=== PATIENT | female | born 1945 | race Caucasian/White ===

== ENCOUNTER 2024-04-27 09:55 | Emergency (ER) | payer MEDICARE, OTHER, SELFPAY ==
[2024-04-27 10:00] VITALS: BMI 23.5
[2024-04-27 10:04] VITALS: BP 143/60
[2024-04-27 10:05] VITALS: BP 143/60
[2024-04-27 10:36] LABS: % Basophils 0.2 % (0-2); % Eosinophils 0.4 % (0-6); % Immature Granulocytes 0.6 % (0-0.5); % Lymphocytes 13.6 % (20.5-51.1); % Monocytes 6.7 % (1.7-9.3); % Neutrophils 78.5 % (42.2-75.2); Absolute Immature Granulocytes 0.1 10^3/uL (0-0.05); Absolute Lymphocytes 1.2 10^3/uL (1.2-3.4); Absolute Monocytes 0.6 10^3/uL (0.1-0.6); Absolute Neutrophils 7.1 10^3/uL (1.4-6.5); Hematocrit 37.3 % (37.0-47.0); Hemoglobin 12.7 g/dL (12.0-16.0); Mean Corpuscular Hgb 30.3 pg (27.0-31.0); Mean Platelet Volume 9.3 fL (7.4-10.4); Nucleated Red Blood Cells % 0 %; Platelet Count 240 10^3/uL (130-400); Red Blood Cell Count 4.19 10^6/uL (4.20-5.40); Red Cell Dist. Width 12.9 % (11.5-14.5); White Blood Cell Count 9.1 10^3/uL (4.8-10.8)
--- NOTE | 2024-04-27 10:47 | ED.GENMED ---
History of Present Illness
General
Chief Complaint: Breathing Problem
Time Seen by Provider: 04/27/24 10:07
History of Present Illness
History of Present Illness:
79-year-old female with history of chronic tobacco abuse and COPD presents to the emergency department for evaluation of shortness of breath, worse with exertion this morning. She states symptoms started abruptly associated with chest tightness,
she did use an albuterol nebulizer and feels improved upon arrival to the emergency department. Denies any recent fevers or night sweats, denies current chest pain. Still with mild shortness of breath. Denies any leg swelling or calf cramping.
Past History
Past History
ED Past Medical History: Asthma
ED Past Surgical History: Cholecystectomy
Social History
Tobacco: Smoker
Alcohol: Occasional
Personal: Single
Living: with family
Family History
Family History: CAD
Review of Systems
Review of Systems
Allergies reviewed?: Yes
All Other Systems: ROS reviewed and negative except as documented in HPI and ROS
Phy Exam
Physical Exam
Physical Exam:
GEN: Well appearing, NAD, WDWN
Eyes: PERRLA, EOMs intact, no scleral icterus
HENT: NCAT, oral mucosa moist
Lungs: Normal respiratory effort, no tachypnea accessory muscle use. Occasional inspiratory rhonchi heard throughout, no expiratory wheezes or rales
Cardiac: RRR, no M/R/G, no peripheral edema. Radial pulses 2+ bilat
Neuro: AO x 3
MSK: No gross deformity or ecchymosis. No edema. No digital clubbing
Skin: No rashes, petechiae. Normal color, no pallor or jaundice.
Psych: Calm, cooperative, proper hygiene
Scores
Heart Failure Risk
Heart Failure Risk Score: Not Applicable
Course
Orders/Labs/Results
Orders:
Orders
04/27/24 09:58
Electrocardiogram (*1) Urgent
Reason for Study: Shortness of Breath
04/27/24 09:59
EKG- Treatment ONCE
04/27/24 10:23
Basic Metabolic Panel Urgent
Complete Blood Count/With Diff Urgent
Pro-BNP [NT-proBNP] Urgent
Troponin I Urgent
04/27/24 10:26
Add On- LAB Urgent
Tests Added?: troponin
04/27/24 10:44
CR Chest - 2 Views Urgent
Comment:
Reason For Exam: SOB
Abnormal Lab Results
04/27/24
10:23
RBC 4.19 L 10^6/uL
(4.20-5.40)
Abs Immat Gran (auto) 0.1 H 10^3/uL
(0-0.05)
Absolute Neuts (auto) 7.1 H 10^3/uL
(1.4-6.5)
Immature Gran % 0.6 H %
(0-0.5)
Neutrophils % 78.5 H %
(42.2-75.2)
Lymphocytes % 13.6 L %
(20.5-51.1)
BUN 18 H mg/dl
(7-17)
Glucose 129 H mg/dl
(70-99)
04/27/24 10:23
04/27/24 10:23
Vital Signs
Initial and Last Documented VS:
Initial Vital Signs
Pulse Resp
87 21
04/27/24 10:03 04/27/24 10:03
Last Documented Vital Signs
Temp Pulse Resp BP Pulse Ox
98.3 F 71 16 123/58 93
04/27/24 10:05 04/27/24 13:00 04/27/24 13:00 04/27/24 13:00 04/27/24 13:00
MDM/Problems Addressed
MDM/Problems Addressed:
Patient remained free of symptoms while in the emergency department. Her EKG is nonischemic and her troponin is unremarkable, she was ambulated by myself in the emergency department without any reproduction of symptoms. There is no wheezing. This
could have been an acute bronchospasm that resolved after albuterol use. Chest x-ray shows no acute infiltrate. Do not feel there is any need for steroids in this instance given that she is not actively using. Discussed supportive care and return
parameters
Comment
Comment:
Initial EKG independently interpreted by me send ECG patient however no gross ST changes concerning for ischemia, sinus rhythm at a rate of 86 with frequent PVCs noted
*Critical Care Note
Total Time (30-74mins, 75-104mins- exclusive of procedures): Not Applicable
ED Attending Note
-
Portions of this chart may have been created with voice recognition software.� Occasional wrong word or��sound alike� substitutions may have occurred due to the inherent limitations of voice recognition software.
Discharge Plan
Departure
Patient Disposition: Home (Routine Discharge)
Date of Disposition: 04/27/24
Time of Disposition: 13:12
Patient with high blood pressure during this ER visit?: No
Discharge Problem:
Exertional dyspnea
Instructions: Shortness of Breath (Dyspnea) (DC)
Prescriptions:
New
albuterol sulfate 2.5 mg /3 mL (0.083 %) solution for nebulization
2.5 mg inhalation QID PRN (Reason: shortness of breath or wheezing) Qty: 180 0RF
No Action
zinc 50 MG tablet
50 mg PO DAILY
cholecalciferol (vitamin D3) 1,000 UNITS tablet
1,000 units PO DAILY
Spiriva Respimat 1.25mcg
2 puff inhalation R DAILY
Referrals:
Ángela Gibbons MD [Active] -
Freedom Clark DO [Family Provider] -
Interventions
Interventions:
*Risk Screen - Suicide Last Done: 04/27/24 10:07
*General Assessment Last Done: 04/27/24 10:05
*Neglect/Abuse Screening Last Done: 04/27/24 10:07
ED- Fall Risk Assessment Last Done: 04/27/24 10:05
*ED COVID-19 Vaccine History Last Done: 04/27/24 10:07
*Nursing Disposition Last Done: 04/27/24 13:21
ED- Cardiac Assessment Last Done: 04/27/24 10:07
ED- Pulmonary Assessment Last Done: 04/27/24 10:07
Discharge Date and Time
Discharge Date/Time: 04/27/24 13:21
Print Language: TURKMEN
[2024-04-27 10:52] LABS: Blood Urea Nitrogen 18 mg/dl (7-17); Calcium 9.1 mg/dl (8.4-10.2); Carbon Dioxide 27 mmol/L (22-30); Chloride 104 mmol/L (98-107); Estimated Creatinine Clearance 57 ml/min; Glucose 129 mg/dl (70-99); Sodium 137 mmol/L (135-145); eGFR > 60.00
[2024-04-27 10:58] LABS: NT-proBNP 53.6 pg/ml
[2024-04-27 11:00] VITALS: BP 114/52
[2024-04-27 11:21] LABS: Troponin I 0.017 ng/ml
[2024-04-27 12:00] VITALS: BP 115/44
[2024-04-27 13:00] VITALS: BP 123/58
== END 2024-04-27 13:21 | disposition home or self-care (01) ==
LOC: EMR 09:55
PROVIDERS: EMERGENCY PHYSICIAN Emergency Medicine; FAMILY PHYSICIAN Internal Medicine
DX: R06.00 Dyspnea, unspecified (principal); J44.89 Other specified chronic obstructive pulmonary disease; F17.200 Nicotine dependence, unspecified, uncomplicated; Z82.49 Family history of ischemic heart disease and other diseases of the circulatory system; Z90.49 Acquired absence of other specified parts of digestive tract
CPT/HCPCS: 99283; 71046; 80048; 83880; 84484; 85025; 93005

== ENCOUNTER → 2024-07-11 11:19 | Outpatient (REF) | payer MEDICARE, OTHER, SELFPAY | LOC: HWRAD 11:19 | PROVIDERS: ATTENDING PHYSICIAN Internal Medicine Critical Care Medicine; FAMILY PHYSICIAN Internal Medicine | DX: R91.1 Solitary pulmonary nodule (principal) | CPT/HCPCS: 71250 ==

== ENCOUNTER 2025-01-07 18:03 | Emergency (ER) | payer MEDICARE, OTHER, SELFPAY ==
[2025-01-07 18:17] VITALS: BP 165/80
[2025-01-07 18:40] LABS: % Basophils 0.6 % (0-2); % Eosinophils 3.7 % (0-6); % Immature Granulocytes 0.2 % (0-0.5); % Lymphocytes 24.9 % (20.5-51.1); % Monocytes 8.9 % (1.7-9.3); % Neutrophils 61.7 % (42.2-75.2); Absolute Eosinophils 0.2 10^3/uL (0-0.7); Absolute Lymphocytes 1.5 10^3/uL (1.2-3.4); Absolute Monocytes 0.6 10^3/uL (0.1-0.6); Absolute Neutrophils 3.8 10^3/uL (1.4-6.5); Hematocrit 37.9 % (37.0-47.0); Hemoglobin 12.7 g/dL (12.0-16.0); Mean Corp Hgb Conc. 33.5 g/dL (33.0-37.0); Mean Corpuscular Hgb 29.6 pg (27.0-31.0); Mean Corpuscular Volume 88.3 fL (81.0-99.0); Mean Platelet Volume 9.4 fL (7.4-10.4); Nucleated Red Blood Cells % 0 %; Platelet Count 251 10^3/uL (130-400); Red Blood Cell Count 4.29 10^6/uL (4.20-5.40); Red Cell Dist. Width 13.2 % (11.5-14.5); White Blood Cell Count 6.2 10^3/uL (4.8-10.8)
[2025-01-07 18:56] LABS: ALT (SGPT) 19 U/L (0-35); AST (SGOT) 24 U/L (14-36); Albumin 4.7 g/dl (3.5-5.0); Alkaline Phosphatase 84 U/L (38-126); Blood Urea Nitrogen 15 mg/dl (7-17); Calcium 9.6 mg/dl (8.4-10.2); Carbon Dioxide 28 mmol/L (22-30); Chloride 101 mmol/L (98-107); Glucose 97 mg/dl (70-99); Potassium 4.3 mmol/L (3.5-5.1); Sodium 138 mmol/L (135-145); Total Bilirubin 0.5 mg/dl (0.2-1.3); Total Protein 7.5 g/dl (6.3-8.2); eGFR > 60.00
[2025-01-07 19:04] LABS: NT-proBNP 54.2 pg/ml; Troponin I < 0.012 ng/ml
[2025-01-07 20:20] VITALS: BP 158/70
[2025-01-07 20:24] VITALS: BMI 26.6
[2025-01-07 21:00] VITALS: BP 165/70
[2025-01-07] MEDS: DUONEB 3 ML INH (21:02)
--- NOTE | 2025-01-07 21:14 | ED.GENMED ---
History of Present Illness
<Brooke Ricardo PA-C - Last Filed: 01/08/25 16:06>
General
Chief Complaint: Cardiac Symptoms
Source: patient and family (Patient sons at bedside)
Exam Limitations: none
Time Seen by Provider: 01/07/25 20:19
Nursing documentation reviewed up to this point in time: agreed with
History of Present Illness
History of Present Illness:
Patient is a 79-year-old female with history of asthma, COPD, hypertension presenting to the emergency department for evaluation of intermittent chest tightness and shortness of breath for the past few weeks. Patient sent from primary care office
after they noticed an abnormality on her EKG. She reports a tightness in her mid chest associated with mild shortness of breath typically occurring in the morning and resolve after use of her albuterol inhaler. Patient denies any exertional or
pleuritic component to symptoms.
She denies any associated fever, cough, back pain. No lower extremity edema or swelling.
Of note�patient states she started taking amlodipine 5 mg about 1.5 weeks ago and thinks this may be related to symptoms.
Past History
<Brooke Ricardo PA-C - Last Filed: 01/08/25 16:06>
Past History
ED Past Medical History: Asthma
ED Past Surgical History: Cholecystectomy
Social History
Tobacco: Smoker
Alcohol: Occasional
Personal: Single
Living: with family
Family History
Family History: CAD
Review of Systems
<Brooke Ricardo PA-C - Last Filed: 01/08/25 16:06>
Review of Systems
Allergies reviewed?: Yes
All Other Systems: ROS reviewed and negative except as documented in HPI and ROS
Phy Exam
<Brooke Ricardo PA-C - Last Filed: 01/08/25 16:06>
Physical Exam
Physical Exam:
Vitals: Hypertensive, otherwise vital signs stable. Afebrile
General: Patient is well appearing, no acute distress. Nontoxic appearing
Skin: Warm and dry, no rashes or lesions
Head: Normocephalic, atraumatic
Eyes: Sclera nonicteric. EOMs intact. No nystagmus.
Throat: Protecting airway
Neck: Normal ROM, no cervical spine tenderness, no meningismus
Cardiac: Regular rate and rhythm, no murmurs.
Pulm: Normal respiratory effort. Very mild scattered expiratory wheeze bilaterally.
Abdomen: Abdomen soft and nontender.
Extremities: No evidence of cyanosis or edema. Palpable DP pulses bilaterally
Neuro: AAOx3. Grossly intact.
Psychiatric: Normal affect.
Course
<Brooke Ricardo PA-C - Last Filed: 01/08/25 16:06>
Orders/Labs/Results
Orders:
Orders
01/07/25 18:04
ECG [Electrocardiogram (*1)] Urgent
Reason for Study: Chest Pain
EKG- Treatment ONCE
01/07/25 18:25
CR Chest - 2 Views Urgent
Comment:
Reason For Exam: respiratory distress
01/07/25 18:31
Complete Blood Count/With Diff Urgent
Comprehensive Metabolic Panel Urgent
NT-proBNP Urgent
Troponin I Urgent
01/07/25 20:43
Ipratropium/Albuterol Sulfate [Duoneb] 3 ml INH R NOW STA
01/07/25 21:02
COVID-19 Antigen Urgent
Source: Nasal Swab
D-Dimer Urgent
Influenza A+B Rapid Molecular Urgent
KATHY Source: Nasal Swab
Specimen Description:
01/07/25 23:30
Prednisone [Deltasone] 50 mg PO NOW STA
01/07/25 18:31
01/07/25 18:31
Vital Signs
Initial and Last Documented VS:
Initial Vital Signs
Temp Pulse Resp BP Pulse Ox
98.9 F 77 18 165/80 93
01/07/25 18:17 01/07/25 18:17 01/07/25 18:17 01/07/25 18:17 01/07/25 18:17
Last Documented Vital Signs
Temp Pulse Resp BP Pulse Ox
98.9 F 81 32 158/68 94
01/07/25 18:17 01/07/25 23:41 01/07/25 23:41 01/07/25 23:41 01/07/25 23:41
<Colton Brumfield MD - Last Filed: 01/07/25 23:37>
Orders/Labs/Results
Orders:
Orders
01/07/25 18:04
ECG [Electrocardiogram (*1)] Urgent
Reason for Study: Chest Pain
EKG- Treatment ONCE
01/07/25 18:25
CR Chest - 2 Views Urgent
Comment:
Reason For Exam: respiratory distress
01/07/25 18:31
Complete Blood Count/With Diff Urgent
Comprehensive Metabolic Panel Urgent
NT-proBNP Urgent
Troponin I Urgent
01/07/25 20:43
Ipratropium/Albuterol Sulfate [Duoneb] 3 ml INH R NOW STA
01/07/25 21:02
COVID-19 Antigen Urgent
Source: Nasal Swab
D-Dimer Urgent
Influenza A+B Rapid Molecular Urgent
KATHY Source: Nasal Swab
Specimen Description:
01/07/25 23:30
Prednisone [Deltasone] 50 mg PO NOW STA
01/07/25 18:31
01/07/25 18:31
Vital Signs
Initial and Last Documented VS:
Initial Vital Signs
Temp Pulse Resp BP Pulse Ox
98.9 F 77 18 165/80 93
01/07/25 18:17 01/07/25 18:17 01/07/25 18:17 01/07/25 18:17 01/07/25 18:17
Last Documented Vital Signs
Temp Pulse Resp BP Pulse Ox
98.9 F 81 32 158/68 94
01/07/25 18:17 01/07/25 23:41 01/07/25 23:41 01/07/25 23:41 01/07/25 23:41
<Brooke Ricardo PA-C - Last Filed: 01/08/25 16:06>
MDM/Problems Addressed
Differential Diagnosis Includes:
Not limited to: COPD exacerbation, viral bronchitis, pneumonia, pulmonary embolism, acute coronary syndrome, etc
MDM/Problems Addressed:
79 year old female presenting with 1.5 weeks of intermittent chest tightness and dyspnea mostly resolved with albuterol inhaler. No exertional or pleuritic component to symptoms. No associated fever, productive cough, or LE pain/swelling. Vitals and
exam as above. Labs sent off in triage without clinically significant abnormalities. Troponin undetectable. Given patient has been without chest discomfort since this morning - feel this is sufficient to r/u acute TN. Pro-BNP within normal range.
EKG shows normal sinus rhythm without acute ischemic changes. Did compare to EKG obtained at PCPs office without any changes noted. CXR shows no acute abnormalities. Overall impression is likely mild COPD exacerbation vs viral bronchitis. Low
suspicion for PE although will send screen with D-dimer. Do not suspect ACS given undetectable troponin and nonischemic EKG. Do not suspect related to new amlodipine prescription. Will give duoneb and send viral swabs.
Update: d-dimer wnl. viral testing negative. Patient reports feeling much better after duoneb. Lungs clear without wheeze. Patient appears very well and comfortable. She is not hypoxic or tachypneic. Admit not indicated. Will discharge home w/ short
course of prednisone for mild COPD exacerbation. Patient has refills of albuterol inhaler at home which she will continue to use as needed. Patient will f/u with PCP. Strict return precautions discussed.
Chronic conditions affecting care:
COPD, asthma
Acute Exacerbation and/or Progression of Chronic Illness:
Acute COPD exacerbation
<Brooke Ricardo PA-C - Last Filed: 01/08/25 16:06>
*Radiology
Radiology exam reviewed: radiology read reviewed
*Pulse Oximetry
Patient hypoxic: no
*EKG
Interpreted by ED Provider?: Yes
EKG Intrepretation Date: 01/07/25
Interpretation: normal
Comparison EKG: no changes
Heart Rate: 76
Rate: normal
Rhythm: sinus
[place]: normal axis
Interval: normal interval
QRS Pattern: normal QRS
Ischemia: no ischemia
*Baggagemaster Interpretation
Rate: normal
Interpretation: normal
Heart Rate: 80
Rhythm: sinus
*Critical Care Note
Total Time (30-74mins, 75-104mins- exclusive of procedures): Not Applicable
Data Reviewed
Review of Other/Old Records Reveals: Testing (EKG obtained in PCP 01/07/25- NSR without acute ischemic changes)
ED Attending Note
<Brooke Ricardo PA-C - Last Filed: 01/08/25 16:06>
-
Portions of this chart may have been created with voice recognition software.� Occasional wrong word or��sound alike� substitutions may have occurred due to the inherent limitations of voice recognition software.
<Colton Brumfield MD - Last Filed: 01/07/25 23:37>
ED Attending Note
Patient seen and examined by attending physician: Yes
ED Attending Note:
I have seen and evaluated the patient with a [id number] encounter. I have spoken to the advance practicer provider and involved in the medical history, the physical exam, medical decision making.
Evaluation and management service: agree unless noted differently below.
Results interpretation: agree unless noted differently below.
Focused HPI: 79-year-old female with history of COPD presents to the ER for evaluation of chest tightness. Patient reports symptoms have been intermittent for the past week to 10 days. She reports that typically in the mornings she will wake up
and have tightness in her chest and some shortness of breath. She says that typically her symptoms resolved with albuterol nebulizer. She says that she thought it could be related to newly initiated amlodipine, scheduled an appoint with her
primary doctor. Had an EKG in the office and there was a question of lateral infarct age-indeterminate and she was referred to the ER. She denies any chest pain at present. She denies any other complaints.
Physical exam: Awake alert no distress. Hypertensive otherwise normal vitals. No cardiac rubs gallops or murmurs. Faint scattered wheezing. No edema in the legs.
Medical Decision Makin-year-old female presents for evaluation of intermittent chest tightness typically in the mornings that resolves with albuterol. She had EKG which was questionably abnormal at primary visit today and was sent to the ER to
be evaluated. Her clinical history is most consistent with COPD exacerbation/bronchitis. Will check serial troponins, chest x-ray, labs. I did review EKG from PCP office computer read as questionable lateral infarct but appears unchanged when
compared to old EKGs. If troponins negative and other workup otherwise reassuring can likely be discharged on prednisone with continued albuterol for suspected COPD/bronchitis.
Discharge Plan
Departure
Patient Disposition: Home (Routine Discharge)
Date of Disposition: 01/07/25
Time of Disposition: 23:37
Patient with high blood pressure during this ER visit?: Yes
Covid-19: Negative COVID-19
Discharge Problem:
COPD exacerbation
Instructions: Chest pain - Discharge instructions, Chronic obstructive pulmonary disease (COPD) - Discharge instructions
Prescriptions:
New
prednisone 50 mg tablet
50 mg PO DAILY Qty: 5 0RF
No Action
zinc 50 MG tablet
50 mg PO DAILY
cholecalciferol (vitamin D3) 1,000 UNITS tablet
1,000 units PO DAILY
Spiriva Respimat 1.25mcg
2 puff inhalation R DAILY
albuterol sulfate 2.5 mg /3 mL (0.083 %) solution for nebulization
2.5 mg inhalation QID PRN (Reason: shortness of breath or wheezing) Qty: 180 0RF
Referrals:
NONE,* [Active] -
Activity Restrictions/Additional Instructions:
Return to the emergency department any worsening chest pain or shortness of breath, fevers or productive cough, significant weakness, worsening current symptoms, or any other concerns
-As discussed your lab work, EKG, and chest x-ray in the emergency department showed no abnormalities.
-I suspect your symptoms are likely secondary to a mild COPD exacerbation or bronchitis. You should continue to use your albuterol inhaler as needed at home for chest tightness/wheezing. A prescription for prednisone has been sent to the pharmacy.
You should take this daily for the next 4 days. You were given your first dose today and should resume medication tomorrow.
-It is important stay well-hydrated. Continue to take all other medications as prescribed
-Follow-up with your primary care provider for further evaluation/management to ensure that symptoms are improving
Monitor your symptoms closely and return to the emergency department with any acute worsening/new symptoms or any other concerns
Interventions
Interventions:
*Risk Screen - Suicide Last Done: 01/07/25 18:24
*General Assessment Last Done: 01/07/25 20:24
*Neglect/Abuse Screening Last Done: 01/07/25 18:24
*ED- Fall Risk Assessment Last Done: 01/07/25 18:24
*ED COVID-19 Vaccine History Last Done: 01/07/25 20:24
*Nursing Disposition Last Done: 01/07/25 23:44
ED- Pulmonary Assessment Last Done: 01/07/25 20:24
ED- Cardiac Assessment Last Done: 01/07/25 20:24
Discharge Date and Time
Discharge Date/Time: 01/07/25 23:54
Print Language: NAMIBIAN
[2025-01-07 21:27] LABS: D-Dimer 0.43 ug/mlFEU (0.00-0.50)
[2025-01-07 21:30] LABS: COVID-19 Antigen Negative (Negative)
[2025-01-07 23:41] VITALS: BP 158/68
== END 2025-01-07 23:54 | disposition home or self-care (01) ==
LOC: EMR 18:03
PROVIDERS: Physician Assistant; EMERGENCY PHYSICIAN Emergency Medicine; FAMILY PHYSICIAN Internal Medicine
DX: J44.1 Chronic obstructive pulmonary disease with (acute) exacerbation (principal); I10 Essential (primary) hypertension; F17.200 Nicotine dependence, unspecified, uncomplicated; Z90.49 Acquired absence of other specified parts of digestive tract; Z11.52 Encounter for screening for COVID-19
CPT/HCPCS: 99285; 94640; 71046; 80053; 83880; 84484; 85025; 85379; 87502; 87811; 93005

== ENCOUNTER 2025-02-09 10:51 | Emergency (ER) | payer MEDICARE, OTHER, SELFPAY ==
[2025-02-09 10:53] VITALS: BP 159/87
[2025-02-09 11:56] VITALS: BMI 24.5
[2025-02-09 12:00] VITALS: BP 153/68
[2025-02-09] MEDS: PROTONIX IV 40 MG IV (12:11)
[2025-02-09 12:17] LABS: % Basophils 0.4 % (0-2); % Immature Granulocytes 0.3 % (0-0.5); % Monocytes 9.2 % (1.7-9.3); % Neutrophils 68.1 % (42.2-75.2); Absolute Eosinophils 0.2 10^3/uL (0-0.7); Absolute Lymphocytes 1.4 10^3/uL (1.2-3.4); Absolute Monocytes 0.7 10^3/uL (0.1-0.6); Absolute Neutrophils 4.9 10^3/uL (1.4-6.5); Hematocrit 37.3 % (37.0-47.0); Hemoglobin 12.4 g/dL (12.0-16.0); Mean Corp Hgb Conc. 33.2 g/dL (33.0-37.0); Mean Corpuscular Hgb 29.2 pg (27.0-31.0); Mean Corpuscular Volume 87.8 fL (81.0-99.0); Nucleated Red Blood Cells % 0 %; Platelet Count 233 10^3/uL (130-400); Red Blood Cell Count 4.25 10^6/uL (4.20-5.40); White Blood Cell Count 7.3 10^3/uL (4.8-10.8)
--- NOTE | 2025-02-09 12:18 | ED.GENMED ---
History of Present Illness
General
Chief Complaint: Abdominal Symptoms
Time Seen by Provider: 02/09/25 12:04
History of Present Illness
History of Present Illness:
80-year-old female with history of COPD and hypertension presents to the emergency department for evaluation of upper abdominal pain associated with dark stool and shortness of breath for the past 2 to 3 days. Her son indicates that it is likely
been longer than the past few days, more so in the past 'few weeks'. Patient states her pain is severe when she first wakes up in the morning however she notes that she is able to eat and drink without difficulty. She has been using Pepto-Bismol
with modest relief over the past few days and this seems to correlate with the dark stool. She has been using her albuterol without any relief of the shortness of breath. No associated fever, chills, or sweats. Prior history of total abdominal
hysterectomy and cholecystectomy
Past History
Past History
ED Past Medical History: Asthma
ED Past Surgical History: Cholecystectomy
Social History
Tobacco: Smoker
Alcohol: Occasional
Personal: Single
Living: with family
Family History
Family History: CAD
Review of Systems
Review of Systems
Allergies reviewed?: Yes
All Other Systems: ROS reviewed and negative except as documented in HPI and ROS
Phy Exam
Physical Exam
Physical Exam:
GEN: Well appearing, NAD, WDWN
HEENT: Oral mucosa moist, no scleral icterus
Cardiac: Regular rate and rhythm, no murmurs
Lung: No respiratory distress, no tachypnea, lungs clear to auscultation bilaterally however diminished in the bases
Abdomen: Soft, marked epigastric tenderness, no rigidity
MSK: No gross deformity or injuries
Skin: Good color, no pallor or jaundice, no rashes
Neuro: AO x3, moves all extremities freely
Psych: Calm, cooperative
Course
Orders/Labs/Results
Orders:
Orders
02/09/25 11:41
Electrocardiogram (*1) Stat
Reason for Study: Other
Other Reason for Exam: GI Bleed
EKG- Treatment ONCE
IV Insert/Care/Rem.- Treatment PRN
Pantoprazole [Protonix IV] 40 mg IV NOW STA
02/09/25 12:06
Type+Screen Urgent
Complete Blood Count/With Diff Urgent
Comprehensive Metabolic Panel Urgent
Lipase Urgent
Comment: ADD ON
PTT Urgent
Prothrombin Time Urgent
02/09/25 13:07
Add On- LAB Urgent
Tests Added?: lipase
02/09/25 13:45
CT Abd/Pel (IV only)-DH only Urgent
Comment:
Reason For Exam: epigastric pain
Ketorolac [Toradol] 15 mg IV NOW STA
02/09/25 15:41
Ipratropium/Albuterol Sulfate [Duoneb] 3 ml INH R NOW ONE
02/09/25 17:02
Dexamethasone Sod Phosphate [Decadron] 6 mg IV NOW STA
Abnormal Lab Results
02/09/25
12:06
Absolute Monos (auto) 0.7 H 10^3/uL
(0.1-0.6)
Lymphocytes % 19.0 L %
(20.5-51.1)
02/09/25 12:06
02/09/25 12:06
Vital Signs
Initial and Last Documented VS:
Initial Vital Signs
Temp Pulse Resp BP Pulse Ox
98.4 F 76 24 159/87 94
02/09/25 10:53 02/09/25 10:53 02/09/25 10:53 02/09/25 10:53 02/09/25 10:53
Last Documented Vital Signs
Temp Pulse Resp BP Pulse Ox
98.4 F 76 24 124/77 92
02/09/25 10:53 02/09/25 10:53 02/09/25 10:53 02/09/25 17:00 02/09/25 16:45
MDM/Problems Addressed
MDM/Problems Addressed:
Patient was initially evaluated for upper abdominal pain, had unremarkable labs and negative CT. Shortly after being given NSAID she reported that her pain had resolved however she felt predominantly short of breath. Reassessment revealed she was
wheezing, given a DuoNeb with improvement. Unclear causative nature of the pain, doubt this is an upper GI bleed given that she has no risk factors for this and is able to eat without difficulty. Dark stool most likely related to Pepto-Bismol
usage. Will start her on prednisone for suspected COPD exacerbation
*Critical Care Note
Total Time (30-74mins, 75-104mins- exclusive of procedures): Not Applicable
ED Attending Note
-
Portions of this chart may have been created with voice recognition software.� Occasional wrong word or��sound alike� substitutions may have occurred due to the inherent limitations of voice recognition software.
Discharge Plan
Departure
Patient Disposition: Home (Routine Discharge)
Date of Disposition: 02/09/25
Time of Disposition: 17:02
Patient with high blood pressure during this ER visit?: No
Discharge Problem:
COPD exacerbation
Instructions: COPD exacerbation in adults - ED discharge instructions
Prescriptions:
New
prednisone 20 mg tablet
40 mg PO DAILY 6 Days Qty: 12 0RF
No Action
albuterol sulfate 2.5 mg /3 mL (0.083 %) solution for nebulization
2.5 mg inhalation R Q6HPRN PRN (Reason: sob)
amlodipine 5 mg tablet
5 mg PO HS
bismuth subsalicylate [Pepto-Bismol] 262 mg/15 mL Suspension
524 mg PO DAILYPRN PRN (Reason: upset stomach)
naproxen sodium [Aleve] 220 mg Tablet
220 mg PO DAILYPRN PRN (Reason: mild pain)
albuterol sulfate 90 mcg/actuation HFA aerosol inhaler
2 inh INHALATION R Q6HPRN PRN (Reason: sob)
Referrals:
Flynn Sylvester MD [Family Provider] -
Interventions
Interventions:
*Risk Screen - Suicide Last Done: 02/09/25 17:21
*General Assessment Last Done: 02/09/25 11:56
*Neglect/Abuse Screening Last Done: 02/09/25 12:15
*ED- Fall Risk Assessment Last Done: 02/09/25 11:56
*ED COVID-19 Vaccine History Last Done: 02/09/25 11:56
*Nursing Disposition Last Done: 02/09/25 17:21
KE-Ukwmfb-[id number] Assessment Last Done: 02/09/25 12:07
Discharge Date and Time
Discharge Date/Time: 02/09/25 17:21
Print Language: HEBREW
[2025-02-09 12:39] LABS: APTT 28.6 Sec (23.4-35.0); INR 0.98; PT 13.3 Sec (11.4-14.6)
[2025-02-09 12:41] LABS: ALT (SGPT) 21 U/L (0-35); AST (SGOT) 25 U/L (14-36); Alkaline Phosphatase 78 U/L (38-126); Blood Urea Nitrogen 16 mg/dl (7-17); Calcium 9.4 mg/dl (8.4-10.2); Carbon Dioxide 26 mmol/L (22-30); Chloride 107 mmol/L (98-107); Estimated Creatinine Clearance 43 ml/min; Glucose 97 mg/dl (70-99); Potassium 4.8 mmol/L (3.5-5.1); Sodium 140 mmol/L (135-145); Total Bilirubin 0.8 mg/dl (0.2-1.3); Total Protein 6.6 g/dl (6.3-8.2); eGFR 57.66
[2025-02-09 13:00] VITALS: BP 127/63
[2025-02-09 13:21] LABS: Lipase 109 U/L (23-300)
[2025-02-09 14:00] VITALS: BP 161/92
[2025-02-09] MEDS: TORADOL 15 MG IV (14:03)
[2025-02-09 16:00] VITALS: BP 169/72
[2025-02-09] MEDS: DUONEB 3 ML INH (16:23)
[2025-02-09 17:00] VITALS: BP 124/77
[2025-02-09] MEDS: DECADRON 6 MG IV (17:05)
== END 2025-02-09 17:21 | disposition home or self-care (01) ==
LOC: EMR 10:51
PROVIDERS: EMERGENCY PHYSICIAN Emergency Medicine; FAMILY PHYSICIAN Internal Medicine Gastroenterology
DX: R10.13 Epigastric pain (principal); J44.1 Chronic obstructive pulmonary disease with (acute) exacerbation; I10 Essential (primary) hypertension; F17.200 Nicotine dependence, unspecified, uncomplicated; Z90.49 Acquired absence of other specified parts of digestive tract; Z91.048 Other nonmedicinal substance allergy status
CPT/HCPCS: 99284; 96375 ×2; 94640; 96374; 74177; 80053; 83690; 85025; 85610; 85730; 86850; 86900; 86901; 93005; Q9967

== ENCOUNTER 2025-04-07 11:38 | Emergency (ER) | payer MEDICARE, OTHER, SELFPAY ==
[2025-04-07 11:39] VITALS: BP 139/65
[2025-04-07 12:30] LABS: % Basophils 0.3 % (0-2); % Eosinophils 0.7 % (0-6); % Immature Granulocytes 0.4 % (0-0.5); % Lymphocytes 6.5 % (20.5-51.1); % Monocytes 7.7 % (1.7-9.3); % Neutrophils 84.4 % (42.2-75.2); Absolute Eosinophils 0.1 10^3/uL (0-0.7); Absolute Lymphocytes 0.6 10^3/uL (1.2-3.4); Absolute Monocytes 0.8 10^3/uL (0.1-0.6); Absolute Neutrophils 8.3 10^3/uL (1.4-6.5); Hemoglobin 12.4 g/dL (12.0-16.0); Mean Corp Hgb Conc. 33.5 g/dL (33.0-37.0); Mean Corpuscular Hgb 29.5 pg (27.0-31.0); Mean Corpuscular Volume 87.9 fL (81.0-99.0); Mean Platelet Volume 9.3 fL (7.4-10.4); Nucleated Red Blood Cells % 0 %; Platelet Count 238 10^3/uL (130-400); Red Blood Cell Count 4.21 10^6/uL (4.20-5.40); Red Cell Dist. Width 13.1 % (11.5-14.5); White Blood Cell Count 9.8 10^3/uL (4.8-10.8)
[2025-04-07 12:44] LABS: ALT (SGPT) 17 U/L (0-35); AST (SGOT) 19 U/L (14-36); Alkaline Phosphatase 65 U/L (38-126); Blood Urea Nitrogen 15 mg/dl (7-17); Calcium 9.3 mg/dl (8.4-10.2); Carbon Dioxide 26 mmol/L (22-30); Chloride 107 mmol/L (98-107); Glucose 145 mg/dl (70-99); Potassium 4.2 mmol/L (3.5-5.1); Sodium 140 mmol/L (135-145); Total Bilirubin 0.6 mg/dl (0.2-1.3); Total Protein 6.7 g/dl (6.3-8.2); eGFR > 60.00
[2025-04-07 12:46] LABS: COVID-19 Antigen Negative (Negative)
--- NOTE | 2025-04-07 12:49 | ED.GENMED ---
History of Present Illness
General
Chief Complaint: Breathing Problem
Time Seen by Provider: 04/07/25 12:48
History of Present Illness
History of Present Illness:
REVIEW OF OLD RECORDS
- The patient has history of asthma/COPD/smoker and high blood pressure. The patient was seen in the emergency department 02/09/2025 diagnosed with a COPD exacerbation and was placed on prednisone for suspected COPD exacerbation at that time.
Time of initial evaluation 12:50 PM
CHIEF COMPLAINT(S)
Difficulty breathing.
HISTORY OF PRESENT ILLNESS
The patient is a 80-year-old female with a history of chronic obstructive pulmonary disease (COPD), who presented to the emergency department with complaints of difficulty breathing. The patient reported waking up in the morning and experiencing an
immediate onset of breathlessness, unlike previous episodes. She stated, �I woke up and I couldn�t breathe.� It was noted that the patient felt fine while sitting still but experienced shortness of breath when moving around. She denied any current
chest pain or pressure, although earlier she felt slight chest discomfort likely due to anxiety but described herself as not feeling anxious at present. The patient has a history of smoking but has since quit.
She previously attempted nebulizer treatments at home with her albuterol inhaler, which provided minimal relief. In the emergency department, her oxygen saturation levels are stable while at rest (97%), but they decrease to approximately 87% during
exertion. The patient is not seeing her solid waste technician until April. She had a computed tomography (CT) scan of her lungs during a previous visit in January, which is planned to be repeated.
ADDITIONAL HISTORY OBTAINED FROM SOURCES OTHER THAN THE PATIENT
Nursing assessment confirmed that her oxygen saturation levels dropped to 86% with activity.
CHRONIC MEDICAL CONDITIONS SIGNIFICANTLY AFFECTING CARE
Chronic obstructive pulmonary disease (COPD).
SOCIAL HISTORY
Former smoker.
REVIEW OF SYSTEMS
- Respiratory: Shortness of breath, primarily with exertion. No current wheezing.
- Cardiovascular: Denied current chest pain or pressure, minimal discomfort earlier.
- Neurological/Psychiatric: Denied current anxiety. Previously felt anxious, likely due to respiratory distress.
PHYSICAL EXAM
- Respiratory: Breath sounds diminished bilaterally without wheeze, she does appear dyspneic with exertion as I watched her walk in the room
- Nursing notes reviewed and vital signs reviewed.
- General: Well appearing in no distress
- HEENT: Moist oral mucosa
- Cardiovascular: No murmurs, normal heart rate, regular rhythm, No chest wall tenderness
- Abdomen: Soft with no peritoneal signs, no tenderness
- Neurologic: Excellent strength all extremities, no coordination deficits
- Psychiatric: Appropriate mental status, normal insight and judgement
- Extremities: Nontender, no edema, moves all extremities equally
- Skin: No rash, no lesions
PROBLEM LIST
- Acute: Difficulty breathing, oxygen desaturation with exertion.
- Chronic: Chronic obstructive pulmonary disease (COPD).
PLAN
- Administer an additional nebulizer breathing treatment.
- Provide intravenous steroids.
- Order a repeat CT scan of the chest to rule out any changes since last visit, including possible blood clots.
- Order troponin level to assess for cardiac involvement.
- Monitor oxygen saturation levels before and after exertion.
- Discuss follow-up with solid waste technician, currently scheduled for April.
DIFFERENTIAL DIAGNOSIS
The Differential Diagnosis includes, in no particular order and is not limited to:
1. Chronic obstructive pulmonary disease exacerbation
2. Pneumonia
3. Pulmonary embolism
4. Heart failure
5. Asthma
6. Anxiety-induced hyperventilation
7. Interstitial lung disease
8. Cardiac ischemia
9. Pleural effusion
10. Anemia
RADIOLOGY
- Chest x-ray personally reviewed and again shows oblique band seen on lateral view similar to prior but no definite acute consolidation
EKG
- Sinus 91, leftward axis deviation, nonspecific ST abnormality, no significant change from 02/09/2025
LABS
- CBC unremarkable, chemistries unremarkable however the glucose is 145, COVID-negative, troponin and BNP are both normal
UPDATE
- I watched the patient walk in the emergency department and immediately after exertion for about a minute, her sat, with good waveform on room air was only 86%. This quickly went back up to about 96% without any additional intervention other than
having her rest on the stretcher. Will plan CTA.
04/07/25 - 15:55
CAT scan shows no signs of a blood clot. Oxygen levels occasionally dropped to mid-80s with exertion but quickly rebounded to the 90s. Patient prefers to manage with outpatient treatment. Administered IV steroids, followed by a prescribed course of
prednisone 50 mg for four days. Patient agreed to continue follow-up with their solid waste technician. Discharged home with monitoring plan. The patient was briefly placed on oxygen by nursing staff without my knowledge but I took her off of oxygen and
sats remained about 93% on room air. Patient still continues to want to go home. I did offer and consider admitting her to the hospital.
Past History
Past History
ED Past Medical History: Asthma
ED Past Surgical History: Cholecystectomy
Social History
Tobacco: Smoker
Alcohol: Occasional
Personal: Single
Living: with family
Family History
Family History: CAD
Phy Exam
Physical Exam
Physical Exam:
See HPI
Scores
Heart Failure Risk
Heart Failure Risk Score: Not Applicable
Sepsis
Sepsis Screening
Sepsis Assessment: Sepsis Ruled Out
Sepsis Screen
Sepsis Screen: Sepsis Ruled Out
Date: 04/07/25
Time: 15:59
Course
Orders/Labs/Results
Orders:
Orders
04/07/25 11:44
Electrocardiogram (*1) Urgent
Reason for Study: Shortness of Breath
CXR2 [CR Chest - 2 Views ] Urgent
Comment:
Reason For Exam: sob
04/07/25 11:45
EKG- Treatment ONCE
04/07/25 12:14
COVID-19 Antigen Urgent
Source: Nasal Swab
Complete Blood Count/With Diff Urgent
Comprehensive Metabolic Panel Urgent
Influenza A+B Rapid Molecular Urgent
KATHY Source: Nasal Swab
Specimen Description:
04/07/25 12:59
CT Chest PE Study Urgent
Comment:
Reason For Exam: exertional hypoxia
Ipratropium/Albuterol Sulfate [Duoneb] 3 ml INH R NOW STA
MethylPREDNISolone PF [Solu-Medrol Pf] 125 mg IV NOW STA
04/07/25 13:05
NT-proBNP Urgent
Troponin I Urgent
Abnormal Lab Results
04/07/25
12:14
Absolute Neuts (auto) 8.3 H 10^3/uL
(1.4-6.5)
Absolute Lymphs (auto) 0.6 L 10^3/uL
(1.2-3.4)
Absolute Monos (auto) 0.8 H 10^3/uL
(0.1-0.6)
Neutrophils % 84.4 H %
(42.2-75.2)
Lymphocytes % 6.5 L %
(20.5-51.1)
Glucose 145 H mg/dl
(70-99)
04/07/25 12:14
04/07/25 12:14
Vital Signs
Initial and Last Documented VS:
Initial Vital Signs
Temp Pulse Resp BP Pulse Ox
37.3 C 102 26 139/65 95
04/07/25 11:39 04/07/25 11:39 04/07/25 11:39 04/07/25 11:39 04/07/25 11:39
Last Documented Vital Signs
Temp Pulse Resp BP Pulse Ox
37.3 C 83 18 144/61 91
04/07/25 11:39 04/07/25 15:45 04/07/25 15:01 04/07/25 15:12 04/07/25 15:15
*Pulse Oximetry
Patient hypoxic: no (95% room air-normal)
*Critical Care Note
Total Time (30-74mins, 75-104mins- exclusive of procedures): Not Applicable
ED Attending Note
-
Portions of this chart may have been created with voice recognition software.� Occasional wrong word or��sound alike� substitutions may have occurred due to the inherent limitations of voice recognition software.
Discharge Plan
Departure
Patient Disposition: Home (Routine Discharge)
Date of Disposition: 04/07/25
Time of Disposition: 15:56
Patient with high blood pressure during this ER visit?: Yes
Discharge Problem:
COPD exacerbation
Instructions: Exacerbation of COPD (DC), BLOOD PRESSURE
Prescriptions:
New
prednisone 50 mg tablet
50 mg PO DAILY Qty: 4 0RF
No Action
albuterol sulfate 2.5 mg /3 mL (0.083 %) solution for nebulization
2.5 mg inhalation R Q6HPRN PRN (Reason: sob)
amlodipine 5 mg tablet
5 mg PO HS
bismuth subsalicylate [Pepto-Bismol] 262 mg/15 mL Suspension
524 mg PO DAILYPRN PRN (Reason: upset stomach)
naproxen sodium [Aleve] 220 mg Tablet
220 mg PO DAILYPRN PRN (Reason: mild pain)
albuterol sulfate 90 mcg/actuation HFA aerosol inhaler
2 inh INHALATION R Q6HPRN PRN (Reason: sob)
prednisone 20 mg tablet
40 mg PO DAILY 6 Days Qty: 12 0RF
Referrals:
Freedom Clark DO [Family Provider, Internal Medicine]
Activity Restrictions/Additional Instructions:
I suspect that your symptoms are related to a COPD exacerbation. I sent a prescription for prednisone to your pharmacy. Next dose tomorrow. Return here if worse or other concerns. The CAT scan of the chest shows no sign of blood clot and no sign
of pneumonia. Cardiac blood work shows no sign of heart attack or heart failure. Follow-up with your solid waste technician. Continue to use your nebulizer.
Interventions
Interventions:
*Risk Screen - Suicide Last Done: 04/07/25 11:39
*General Assessment Last Done: 04/07/25 11:39
*Neglect/Abuse Screening Last Done: 04/07/25 11:39
*ED COVID-19 Vaccine History Last Done: 04/07/25 13:00
ED- Cardiac Assessment Last Done: 04/07/25 13:00
ED- Pulmonary Assessment Last Done: 04/07/25 13:00
Discharge Date and Time
Print Language: LITHUANIAN
[2025-04-07] MEDS: SOLU-MEDROL PF 125 MG IV (13:10)
[2025-04-07] MEDS: DUONEB 3 ML INH (13:10)
[2025-04-07 13:38] LABS: NT-proBNP 59.8 pg/ml; Troponin I < 0.012 ng/ml
[2025-04-07 14:08] VITALS: BP 144/67
[2025-04-07 15:12] VITALS: BP 144/61
[2025-04-07 16:00] VITALS: BP 150/79
== END 2025-04-07 16:16 | disposition home or self-care (01) ==
LOC: EMR 11:38
PROVIDERS: Emergency Medicine; EMERGENCY PHYSICIAN Emergency Medicine; FAMILY PHYSICIAN Internal Medicine
DX: J44.1 Chronic obstructive pulmonary disease with (acute) exacerbation (principal); Z87.891 Personal history of nicotine dependence; Z11.52 Encounter for screening for COVID-19
CPT/HCPCS: 94640; 96374; 99285; 71046; 71275; 80053; 83880; 84484; 85025; 87502; 87811; 93005; Q9967

== ENCOUNTER 2025-05-21 14:00 | Observation (INO) | payer MEDICARE, OTHER, SELFPAY ==
[2025-05-21] VITALS (9 sets, daily range): BP systolic 113–162; BP diastolic 43–75; BMI 27.4; BMI 27.5
--- NOTE | 2025-05-21 11:08 | ED.GENMED ---
History of Present Illness
General
Chief Complaint: Breathing Problem
Time Seen by Provider: 05/21/25 11:01
History of Present Illness
History of Present Illness:
80-year-old female with history of COPD presents to the emergency department for evaluation of shortness of breath and wheezing that began upon awakening today. This is her third such event in the past 3 months. She is currently compliant with her
3 times weekly azithromycin and inhaled corticosteroids, used a nebulizer treatment this morning. No fevers or chills. Denies chest pain or leg swelling.
Past History
Past History
ED Past Medical History: Asthma
ED Past Surgical History: Cholecystectomy
Social History
Tobacco: Smoker
Alcohol: Occasional
Personal: Single
Living: with family
Family History
Family History: CAD
Review of Systems
Review of Systems
Allergies reviewed?: Yes
All Other Systems: ROS reviewed and negative except as documented in HPI and ROS
Phy Exam
Physical Exam
Physical Exam:
GEN: Well appearing, NAD, WDWN
HEENT: Oral mucosa moist, no scleral icterus
Cardiac: Regular rate and rhythm
Lung: Tachypneic and mildly hypertrophic, diffuse expiratory wheezes heard throughout all lung luna, no rales
MSK: No gross deformity or injuries, no lower extremity edema
Skin: Good color, no pallor or jaundice, no rashes
Neuro: AO x3, moves all extremities freely
Psych: Calm, cooperative
Scores
Heart Failure Risk
Heart Failure Risk Score: Not Applicable
Course
Orders/Labs/Results
Orders:
Orders
05/21/25 10:48
Electrocardiogram (*1) Urgent
Reason for Study: Shortness of Breath
EKG- Treatment ONCE
CR Chest - 2 Views Urgent
Comment:
Reason For Exam: SOB
05/21/25 11:07
Ipratropium/Albuterol Sulfate [Duoneb] 6 ml INH R NOW STA
MethylPREDNISolone PF [Solu-Medrol Pf] 60 mg IV NOW STA
05/21/25 11:08
Complete Blood Count/With Diff Urgent
Comprehensive Metabolic Panel Urgent
05/21/25 11:13
Ipratropium/Albuterol Sulfate [Duoneb] 3 ml .ROUTE .STK-MED ONE
MethylPREDNISolone PF [Solu-Medrol Pf] 125 mg .ROUTE .STK-MED ONE
05/21/25 11:18
Ipratropium/Albuterol Sulfate [Duoneb] 3 ml .ROUTE .STK-MED ONE
05/21/25 12:53
Ipratropium/Albuterol Sulfate [Duoneb] 3 ml INH R NOW STA
05/21/25 13:27
Admit/Transfer Patient As Directed
Co-Sign Provider:
Level of Care: Observation services
Assign to:: Medical/Surgical
Physician / Group: diane
Diagnosis: copd exacerbation
PRN Pain Medication Management As Directed
May give lesser potent ordered pain med per pt: Yes
preference::
Protocol:: Medication orders for pain may be administered in a
manner that supports deferring to patient preference
when the pt is:
- Requesting an ordered lesser potent pain medication.
Least to most potent pain medications are defined
as: acetaminophen < NSAID < tramadol < opioids
(morphine, oxycodone, hydromorphone).
- Requesting a lesser dose of the same medication IF
ORDERED.
- Requesting a less intrusive route of administration
if both routes are prescribed by the provider (PO <
IV).
05/21/25 13:28
Code Status As Directed
Resuscitation Status: Full Code
Abnormal Lab Results
05/21/25
11:08
MCHC 32.5 L g/dL
(33.0-37.0)
Absolute Neuts (auto) 7.1 H 10^3/uL
(1.4-6.5)
Absolute Lymphs (auto) 1.1 L 10^3/uL
(1.2-3.4)
Neutrophils % 78.9 H %
(42.2-75.2)
Lymphocytes % 11.8 L %
(20.5-51.1)
Chloride 109 H mmol/L
(98-107)
BUN 21 H mg/dl
(7-17)
Glucose 148 H mg/dl
(70-99)
05/21/25 11:08
05/21/25 11:08
Vital Signs
Initial and Last Documented VS:
Initial Vital Signs
Temp Pulse Resp BP Pulse Ox
98.8 F 102 20 127/68 92
05/21/25 10:46 05/21/25 10:46 05/21/25 10:46 05/21/25 10:46 05/21/25 10:46
Last Documented Vital Signs
Temp Pulse Resp BP Pulse Ox
98.8 F 105 28 121/60 95
05/21/25 10:46 05/21/25 15:15 05/21/25 15:15 05/21/25 15:00 05/21/25 15:00
MDM/Problems Addressed
MDM/Problems Addressed:
No clear source of infectious etiology, patient remains tachypneic particular with any minimal exertion thus will admit for further management
*Pulse Oximetry
SaO2: 94
Oxygen Mode of Delivery: Room air
Patient hypoxic: no
*Critical Care Note
Total Time (30-74mins, 75-104mins- exclusive of procedures): Not Applicable
ED Attending Note
-
Portions of this chart may have been created with voice recognition software.� Occasional wrong word or��sound alike� substitutions may have occurred due to the inherent limitations of voice recognition software.
Discharge Plan
Departure
Patient Disposition: Admit
Date of Disposition: 05/21/25
Time of Disposition: 12:54
Admit to: Med/Surg
Presentation/result/management discussed w/ accepting MD/DO: Hospitalist
Discharge Problem:
COPD exacerbation
Interventions
Interventions:
*Risk Screen - Suicide Last Done: 05/21/25 10:46
*General Assessment Last Done: 05/21/25 10:46
*Neglect/Abuse Screening Last Done: 05/21/25 11:02
*ED- Fall Risk Assessment Last Done: 05/21/25 11:02
*ED COVID-19 Vaccine History Last Done: 05/21/25 11:02
ED- Cardiac Assessment Last Done: 05/21/25 11:02
ED- Pulmonary Assessment Last Done: 05/21/25 11:02
[2025-05-21] MEDS: SOLU-MEDROL PF 60 MG IV (11:15)
[2025-05-21] MEDS: DUONEB 6 ML INH (11:16)
[2025-05-21 11:20] LABS: Hematocrit 37.8 % (37.0-47.0); Hemoglobin 12.3 g/dL (12.0-16.0); Mean Corp Hgb Conc. 32.5 g/dL (33.0-37.0); Mean Corpuscular Volume 85.7 fL (81.0-99.0); Nucleated Red Blood Cells % 0 %; Platelet Count 228 10^3/uL (130-400); Red Cell Dist. Width 13.0 % (11.5-14.5)
[2025-05-21 11:34] LABS: ALT (SGPT) 17 U/L (0-35); AST (SGOT) 22 U/L (14-36); Albumin 4.2 g/dl (3.5-5.0); Alkaline Phosphatase 57 U/L (38-126); Blood Urea Nitrogen 21 mg/dl (7-17); Calcium 9.2 mg/dl (8.4-10.2); Carbon Dioxide 25 mmol/L (22-30); Chloride 109 mmol/L (98-107); Estimated Creatinine Clearance 48 ml/min; Glucose 148 mg/dl (70-99); Potassium 4.3 mmol/L (3.5-5.1); Sodium 138 mmol/L (135-145); Total Protein 6.6 g/dl (6.3-8.2); eGFR > 60.00
[2025-05-21] MEDS: DUONEB 3 ML INH ×3 (12:57→19:40)
--- NOTE | 2025-05-21 13:32 | HPS.HSE ---
Addendum entered and electronically signed by Timur Amaral MD 05/21/25 13:36:
Needs LABA/LAMA combination therapy.
Original Note:
Family Physician
-
Family Physician: INTERVIEWE UNKNOWN - PT NOT
Chief Complaint
-
shortness of breath
History of Present Illness
80-year-old female past medical history of COPD, hypertension presenting with shortness of breath with cough and wheezing which e started today. This is her third visit in the past 3 months. She is compliant with 3 times weekly azithromycin and
inhaled corticosteroids and used nebulizer treatment this morning. Denies fevers or chills. Denies chest pain or leg swelling.
She was treated for COPD around a month ago with prednisone. Helped her breathing. She again started having shortness of breath afterwards and was started on inhaled budesonide by her dump grader without any improvement.
She is a former smoker. Denies alcohol.
Medical History
Past Medical History
Past Medical History: Reports Other (COPD, hypertension)
Past Surgical History: Reports None
Social History
Tobacco: Former Smoker
Alcohol: None
Drug: None
Family History
Family History: Not pertinent
Allergies / Home Medications
Allergies reflects when Allergies were last updated in [facility].
Home Medications with original date entered in [facility]
Allergy/Medication List:
Allergies
Allergy/AdvReac Type Severity Reaction Status Date / Time
adhesive tape Allergy Rash Verified 05/21/25 10:47
Home Medications
albuterol sulfate 2.5 mg/3 mL (0.083 %) solution for nebulization 2.5 mg inhalation R Q6HPRN PRN sob 02/09/25
albuterol sulfate 90 mcg/actuation aerosol inhaler 2 inh inhalation R Q6HPRN PRN sob 02/09/25
amlodipine 5 mg tablet 5 mg PO HS 02/09/25
bismuth subsalicylate 262 mg/15 mL oral suspension (Pepto-Bismol) 524 mg PO DAILYPRN PRN upset stomach 02/09/25
naproxen sodium 220 mg tablet (Aleve) 220 mg PO DAILYPRN PRN mild pain 02/09/25
prednisone 20 mg tablet 40 mg (2 x 20 mg) PO DAILY 6 days #12 tabs 02/09/25
prednisone 50 mg tablet 50 mg PO DAILY #4 tabs 04/07/25
Review of Systems
-
History Source: Patient
A 12 point ROS was completed and negative except as noted: Yes
Constitutional: Reports No Symptoms
EENT: Reports No Symptoms
Respiratory: Reports See HPI
Cardiac: Reports No Symptoms
Abdomen/GI: Reports No Symptoms
: Reports No Symptoms
Musculoskeletal: Reports No Symptoms
Skin: Reports No Symptoms
Neurological: Reports No Symptoms
Endocrine: Reports No Symptoms
Hematologic/Lymphatic: Reports No Symptoms
Psych: Reports No Symptoms
Physical Exam
Vital Signs
Vital Signs
Temp Pulse Resp BP Pulse Ox
98.8 F 93 23 116/59 93
05/21/25 10:46 05/21/25 11:15 05/21/25 11:15 05/21/25 11:00 05/21/25 11:15
Physical Exam
General: Well Developed, Well Nourished and No Apparent Distress
HEENT: NormoCephalic, Moist mucous membranes and Atraumatic
Respiratory: Wheezes
Cardiac: S1/S2 and Regular Rhythm; No Murmur or Rub
GI: Soft, Non Tender, Non Distended and Normal Bowel Sounds; No Organomegaly
Rectal: Deferred by Provider
Musculoskeletal: No Clubbing, No Cyanosis and No Edema
Skin: No Rash
Neuro: Nonfocal/grossly intact
Laboratory Results
-
05/21/25 11:08
05/21/25 11:08
Laboratory Results
Total Bilirubin 0.7 mg/dl (0.2-1.3) 05/21/25 11:08
AST 22 U/L (14-36) 05/21/25 11:08
ALT 17 U/L (0-35) 05/21/25 11:08
Alkaline Phosphatase 57 U/L (38-126) 05/21/25 11:08
Data Reviewed
-
Lab Data: Labs Reviewed by me
Old Records: Reviewed
Impression/Plan
-
IMPRESSION:
PLAN:
# Acute COPD exacerbation
-Wheezing on examination
-Saturating 92 to 94% room air
-Chest x-ray unremarkable
- DuoNebs every 6 hours
- Dexamethasone 4 mg every 12
- Continue azithromycin 3 times a week
- Needs outpatient follow-up with pulmonary for frequent COPD flares
Essential hypertension
- Continue amlodipine
Former smoker
Full code
DVT prophylaxis heparin
Regular diet
[2025-05-21] MEDS: DUONEB INH (16:53)
--- NOTE | 2025-05-21 18:03 | PTCARENOTE ---
Pt arrived to unit from ED via stretcher. Able to ambulate from stretcher to bed in room. 2L O2 continued. Pt AAOx3, no complaints at this time. Able to answer all questions appropriately. No complaints of pain. Pt oriented to room and staff. Plan
of care ongoing.
[2025-05-21] MEDS: HEPARIN 5000 UNITS SC (21:08)
[2025-05-21] MEDS: NORVASC 5 MG PO (21:08)
[2025-05-22 05:51] LABS: Hematocrit 34.9 % (37.0-47.0); Hemoglobin 11.4 g/dL (12.0-16.0); Mean Corp Hgb Conc. 32.7 g/dL (33.0-37.0); Mean Corpuscular Volume 86.6 fL (81.0-99.0); Nucleated Red Blood Cells % 0 %; Platelet Count 208 10^3/uL (130-400); Red Cell Dist. Width 12.9 % (11.5-14.5)
[2025-05-22] MEDS: DUONEB 3 ML INH ×5 (06:10→23:09)
[2025-05-22 06:34] LABS: ALT (SGPT) 16 U/L (0-35); AST (SGOT) 19 U/L (14-36); Albumin 3.8 g/dl (3.5-5.0); Alkaline Phosphatase 48 U/L (38-126); Blood Urea Nitrogen 24 mg/dl (7-17); Calcium 9.4 mg/dl (8.4-10.2); Carbon Dioxide 26 mmol/L (22-30); Chloride 108 mmol/L (98-107); Estimated Creatinine Clearance 54 ml/min; Glucose 95 mg/dl (70-99); Potassium 4.5 mmol/L (3.5-5.1); Sodium 140 mmol/L (135-145); Total Protein 6.3 g/dl (6.3-8.2); eGFR > 60.00
[2025-05-22] MEDS: HEPARIN 5000 UNITS SC ×2 (07:33→20:13)
[2025-05-22 07:41] VITALS: BP 130/57
--- NOTE | 2025-05-22 09:58 | CM ---
CM met with Marina Jacobs to complete IA. She lives with one of her sons, Kailash, in [address] home; another son lives in [place].
Pt reports being independent in adls and ambulation. + drives. Denies use of DME. Has not utilized [facility] in past.
Pharmacy: [facility]
PCP: Freedom Sylvester
Plan: Home No needs
--- NOTE | 2025-05-22 11:52 | W.PN.HOSP.TC ---
Today's Communication/Plan
-
Monitor vital signs see plan
Wean oxygen as tolerated
Continue with DuoNeb standing and as needed
Continue with Decadron
Continue azithromycin
start Pulmicort
Pulmonary evaluation
Assessment / Plan
Assessment / Plan
General: Well Developed, Well Nourished and No Apparent Distress
HEENT: NormoCephalic, Moist mucous membranes and Atraumatic
Respiratory: Wheezes
Cardiac: S1/S2 and Regular Rhythm; No Murmur or Rub
GI: Soft, Non Tender, Non Distended and Normal Bowel Sounds
Musculoskeletal: No Edema
Neuro: Nonfocal/grossly intact
Acute COPD exacerbation
-Wheezing on examination
Currently on 2 L, wean oxygen as tolerated
-Chest x-ray unremarkable
- Continue with DuoNeb standing and as needed
- Continue with Decadron, 4 every 12
- Continue azithromycin 3 times a week
- Sees Dr. Garza from pulmonary outpatient, consult pulmonary. Used to be on Spiriva however not on that anymore. Does report recently put on budesonide which she does not like
Essential hypertension
- Continue amlodipine
Former smoker
Full code
DVT prophylaxis heparin
Anticipated Discharge: 24 - 48 hours
Subjective/Interval History
-
Date of Service: May 22, 2025
Denies pain, does have shortness of breath
Objective Data
-
Labs:
Laboratory Results
05/22/25
05:17
WBC 7.6
Hgb 11.4 L
Hct 34.9 L
Plt Count 208
Sodium 140
Potassium 4.5
Chloride 108 H
Carbon Dioxide 26
BUN 24 H
Creatinine 0.9
Glucose 95
Calcium 9.4
Total Bilirubin 0.6
AST 19
ALT 16
Alkaline Phosphatase 48
Vital Signs:
Vital Signs
Temp Pulse Resp BP Pulse Ox
97.9 F 88 22 130/57 94
05/22/25 07:41 05/22/25 11:11 05/22/25 11:11 05/22/25 07:41 05/22/25 11:11
I&O
05/21/25 05/22/25 05/23/25
06:59 06:59 06:59
Intake Total 840 / 840
Balance 840 / 840
[2025-05-22] MEDS: PULMICORT INH (12:12)
--- NOTE | 2025-05-22 12:50 | CON.PUL ---
Consultation
Consultation Request
Date/Time Consultation Requested: 05/22/2025
Date/Time Consultation Performed: 05/22/2025
Requesting Provider: Dr. Moreira
Performing Provider: Dr. Olaf Langford
Reason for Consultation: Acute COPD exacerbation
Medical History
-
Chief Complaint: Exertional dyspnea
History of Present Illness:
80-year-old woman with past medical history significant for COPD, hypertension who presented to the emergency room on 05/21/2025 complaining of shortness of breath, cough, wheezing for 1 day.
Patient has been in the emergency room 3 times in the past 3 months. Patient follow-up with pulmonary, currently on low-dose azithromycin for anti-inflammatory properties, inhaled corticosteroids and DuoNebs.
She denies any fevers, chills.
Denies purulent sputum production or hemoptysis.
Denies fevers.
3 months ago she received prednisone and she felt better.
Currently non-smoking. Quit in June 2024
-
[facility] records reviewed, last time seen was 04/16/2025. At that time she was started on Pulmicort nebulizers on top of DuoNebs.
It is noted that possibly anticholinergics in the past contributed to an ileus
More recently started on low-dose azithromycin for anti-inflammatory properties.
Patient declined pulmonary rehabilitation.
Sputum culture in the outpatient setting showed no significant growth
Past Medical History
Past Medical History: Other (See assessment and plan)
Social History
Tobacco: Former Smoker
Alcohol: None
Drug: None
Family History
Family History: Reviewed & Not Pertinent
Allergies / Home Medications
Allergies
Allergy/AdvReac Type Severity Reaction Status Date / Time
adhesive tape Allergy Rash Verified 05/21/25 10:47
Home Medications
�Medication �Instructions �Recorded �Confirmed �Last Taken �Type
albuterol sulfate 90 mcg/actuation 2 inh inhalation R Q6HPRN PRN sob 02/09/25 05/21/25 02/09/25 History
aerosol inhaler
amlodipine 5 mg tablet 5 mg PO DAILY Blood Pressure 02/09/25 05/21/25 05/21/25 History
azithromycin 250 mg tablet 250 mg PO MOWEFR Infection 05/21/25 05/21/25 05/21/25 History
budesonide 0.5 mg/2 mL suspension 0.5 mg inhalation R Q6HPRN PRN sob 05/21/25 05/21/25 05/21/25 History
for nebulization
ipratropium 0.5 mg-albuterol 3 mg 3 ml inhalation R Q4HPRN PRN sob 05/21/25 05/21/25 05/21/25 History
(2.5 mg base)/3 mL nebulization
soln
Review of Systems
-
History Source: Patient
All other systems: Negative unless noted
Vitals / Labs / Diagnostic Testing
Vital Signs
Temp Pulse Resp BP Pulse Ox
97.9 F 88 22 130/57 94
05/22/25 07:41 05/22/25 11:11 05/22/25 11:11 05/22/25 07:41 05/22/25 11:11
Lab Data
05/22/25 05:17
05/22/25 05:17
Diagnostic Testing:
Physical Exam
-
HEENT: Normocephalic
Cardiovascular: S1/S2
Respiratory: Wheeze (minimal) and Non-Labored Respirations
GI: Soft and Non Distended
Neurology: Awake and Alert
Skin: Warm
General: Comfortable (At rest)
Assessment
-
80-year-old woman with history of moderate COPD, hypertension, former smoker who is here for evaluation of shortness of breath and acute exacerbation of COPD. Over the last several months multiple emergency room visits. Usually responsive to
prednisone but symptoms recurred shortly after tapering.
Acute exacerbation of COPD-recurrent.
Chest x-ray 04/21/2025: Clear lungs
CT chest 04/07/2025: Reviewed, negative for pulmonary embolism. Bronchial wall thickening. No evidence for pleural pericardial effusion. 6 mm nodule left lower lobe unchanged. Chronic atelectasis/scarring in the lingula.
Negative troponin/negative proBNP
Conditions present prior admission:
Hypertension
COPD-last time seen pulmonary office 04/16/2025.
Intolerant to anticholinergics-it is noted that she developed an ileus.
Spirometry: Moderate airflow obstruction. FEV1 1.15 L - 52%, FEV1/FVC ratio 39%, FVC 2.96 L 99%.
History of malignant melanoma
Former smoker stopped smoking [id number]-year history.
Due for low-dose radiation CT chest 03/2026
Assessment and plan:
Recurrent acute exacerbation of COPD/shortness of breath.
Patient denies any allergy symptoms-There is no peripheral eosinophilia reported to suggest allergies.
Denies swallowing problems or acid reflux symptoms
Denies any environmental or occupational exposures
Still off cigarettes since 2023
Interestingly, she reports increased anxiety as her twin brother in December of this year and she is trying to sell her house. This could be contributing to her recurrent symptoms.
She was prescribed anxiolytics but she has not taken them.
She also is taking a new antihypertensive amlodipine which in general is not associated with recurrent pulmonary symptoms.
-
About a month ago was started on nebulized steroids on top of DuoNebs.
Continue for now.
Also recently started on low-dose azithromycin for anti-inflammatory properties and prevention of acute exacerbation.
Responsive to steroids. Will need a regimen that includes inhaled or nebulized corticosteroids.
Discussed she describes some sensitivity to Pulmicort.
-
Imaging of the chest without infiltrate
A sputum culture in the outpatient setting without growth
Patient remains off cigarettes since 2023.
It is interesting the patient response to steroids and symptoms recurred shortly after tapering.
-
For now agree with current management As above.
Slow taper of prednisone over 2 to 3 weeks with close follow-up in the outpatient setting.
If unable to tolerate nebulized Pulmicort will need ICS/LABA combination. She was intolerant to Wixela. May need to try Symbicort.
Advised patient to take her anxiolytics.
-
Cardiac etiology less likely but will update echocardiogram to rule out pulmonary hypertension.
With negative proBNP and troponin my suspicion is not very high.
Doubt thromboembolic disease as well as the symptoms improved with the steroids and CT angiogram in March 2025 showed no evidence for pulmonary embolism.
-
Will continue to follow along with you.
[2025-05-22] MEDS: DUONEB INH (15:02)
[2025-05-22 16:35] VITALS: BP 140/63
[2025-05-22] MEDS: PULMICORT 0.5 MG INH (19:10)
[2025-05-22] MEDS: TYLENOL 650 MG PO (20:13)
[2025-05-22] MEDS: DECADRON 4 MG IV (21:21)
[2025-05-22] MEDS: NORVASC 5 MG PO (21:25)
[2025-05-22 23:00] VITALS: BP 136/68
[2025-05-23 05:45] LABS: Hematocrit 35.1 % (37.0-47.0); Hemoglobin 11.4 g/dL (12.0-16.0); Mean Corp Hgb Conc. 32.5 g/dL (33.0-37.0); Mean Corpuscular Volume 87.3 fL (81.0-99.0); Nucleated Red Blood Cells % 0 %; Platelet Count 215 10^3/uL (130-400); Red Cell Dist. Width 12.8 % (11.5-14.5)
[2025-05-23 06:15] LABS: Blood Urea Nitrogen 25 mg/dl (7-17); Calcium 8.9 mg/dl (8.4-10.2); Carbon Dioxide 24 mmol/L (22-30); Chloride 108 mmol/L (98-107); Estimated Creatinine Clearance 54 ml/min; Glucose 149 mg/dl (70-99); Potassium 5.0 mmol/L (3.5-5.1); Sodium 139 mmol/L (135-145); eGFR > 60.00
[2025-05-23] MEDS: PULMICORT 0.5 MG INH ×2 (07:23→19:18)
[2025-05-23] MEDS: DUONEB 3 ML INH ×4 (07:24→19:18)
[2025-05-23 07:40] VITALS: BP 131/68
[2025-05-23] MEDS: HEPARIN 5000 UNITS SC ×2 (08:26→21:00)
[2025-05-23] MEDS: ZITHROMAX 250 MG PO (08:27)
[2025-05-23] MEDS: DECADRON 4 MG IV ×2 (10:46→21:02)
[2025-05-23] MEDS: FLUSH (NSS) 2 FLUSH IV (10:47)
--- NOTE | 2025-05-23 11:49 | W.PN.PUL3 ---
Today's Communication / Plan
-
-
Continue IV corticosteroids as you are doing-no change today
Continue DuoNeb/Pulmicort
Continue low-dose azithromycin
Home oxygen assessment-currently on low rate supplemental oxygen which is new for her.
Physical therapy to assess symptoms with ambulation
-
If symptoms do not improve with optimization of COPD management then would recommend eventual cardiology evaluation in the outpatient setting to rule out coronary artery disease. Patient has significant coronary calcifications on CT.
Assessment
-
80-year-old woman with history of moderate COPD, hypertension, former smoker who is here for evaluation of shortness of breath and acute exacerbation of COPD. Over the last several months multiple emergency room visits. Usually responsive to
prednisone but symptoms recurred shortly after tapering.
Acute exacerbation of COPD-recurrent.
Chest x-ray 05/21/2025: Clear lungs
CT chest 04/07/2025: Reviewed, negative for pulmonary embolism. Bronchial wall thickening. No evidence for pleural pericardial effusion. 6 mm nodule left lower lobe unchanged. Chronic atelectasis/scarring in the lingula.
Negative troponin/negative proBNP
Conditions present prior admission:
Hypertension
COPD-last time seen pulmonary office 04/16/2025.
Intolerant to anticholinergics-it is noted that she developed an ileus.
Spirometry: Moderate airflow obstruction. FEV1 1.15 L - 52%, FEV1/FVC ratio 39%, FVC 2.96 L 99%.
History of malignant melanoma
Former smoker stopped smoking [id number]-uupu-year history.
Due for low-dose radiation CT chest 03/2026
Assessment and plan:
Recurrent acute exacerbation of COPD/shortness of breath-unclear etiology.
Patient reports that her symptoms worsened over the last several months. In the past per [facility] she has not been using inhaled corticosteroids only using albuterol as needed.
-
Continues to be symptomatic 05/23/2025. Partial improvement-mainly exertional dyspnea with exertion.
Remains on low rate supplemental oxygen.
-
Patient denies any allergy symptoms-There is no peripheral eosinophilia reported to suggest allergies.
Denies swallowing problems or acid reflux symptoms
Denies any environmental or occupational exposures
Still off cigarettes since 2023
Interestingly, she reports increased anxiety as her twin brother in December of this year and she is trying to sell her house. This could be contributing to her recurrent symptoms.
She was prescribed anxiolytics but she has not taken them-she was supposed to take escitalopram prescribed by primary care.
She also is taking a new antihypertensive amlodipine which in general is not associated with recurrent pulmonary symptoms.
-
Discussed with son Frantz over the phone 05/23/2025: Concerned about worsening symptoms over the last several months.
Usually responds well to steroids-which in my opinion is suggest inflammatory airway disease.
If there is ongoing symptoms after COPD optimization I would recommend rule out coronary artery disease as the patient has significant atherosclerotic disease and coronary calcifications.
Echocardiogram 05/22/2025: Showed normal biventricular size and function. Ejection fraction 55-60%. Mild to moderate TR. Estimated pulmonary pressure 34 mmHg.
-
About a month ago was started on nebulized steroids on top of DuoNebs.
She has not been on inhalers.
Usually not using anticholinergics due to possible ileus in the past
-
Plan for today: 05/23/2025
Continue DuoNeb/Pulmicort
Continue low-dose azithromycin
Continue dexamethasone 4 mg IV every 12 hours without change. Upon discharge would recommend prolonged prednisone taper over 7 to 10 days as she is responsive to it.
-
Obtain home oxygen assessment-order in place
Physical therapy evaluation to assess symptoms with ambulation. Order in place
-
Eventually she will start using anxiolytics prescribed by primary care.
-
Not ready for discharge today as she is still symptomatic with exertion. Dr. Langford discussed with son over the phone 05/23/2025.
-
Outpatient follow-up with Dr. Schroeder. Patient already has an appointment next week.
Subjective Data
-
Date of Service:
Date of Service: May 23, 2025
Chief Complaint: Pulmonary Follow Up (Acute exacerbation of COPD)
Subjective:
Improved clinically since admission
No significant phlegm production or hemoptysis
Denies exertional chest pain or palpitation
Review of Systems
Cardiopulmonary: Dyspnea (Improved) and Dyspnea on Exertion ( improved)
Objective Data
Data Reviewed
Vital Signs / I&O / Oxygen:
Vital Signs
Temp Pulse Resp BP Pulse Ox
98.3 F 78 20 131/68 96
05/23/25 07:40 05/23/25 11:02 05/23/25 11:02 05/23/25 07:40 05/23/25 11:02
Intake and Output
05/22/25 05/23/25 05/24/25
06:59 06:59 06:59
Intake Total 840 / 840 660 / 660
Balance 840 / 840 660 / 660
SaO2 96
Nasal Cannula flow liters per 2
minute
Physical Exam
General: Comfortable
HEENT: Normocephalic
Cardiovascular: S1-S2
Respiratory: Wheeze (n)
GI: Soft and Non Distended
Neurology: Awake, Alert and No Motor Deficits
Skin: Warm
Labs/Micro/Reports
Lab Data
05/23/25 05:12
05/23/25 05:12
--- NOTE | 2025-05-23 12:06 | W.PN.HOSP.TC ---
Today's Communication/Plan
-
monitor vitals
see plan
cw IV steroids,nebs
wean o2 as tolerated
Will likely need ambulatory pulse ox prior to discharge
Assessment / Plan
Assessment / Plan
General: Well Developed, Well Nourished and No Apparent Distress
HEENT: NormoCephalic, Moist mucous membranes and Atraumatic
Respiratory: Wheezes
Cardiac: S1/S2 and Regular Rhythm; No Murmur or Rub
GI: Soft, Non Tender, Non Distended and Normal Bowel Sounds
Musculoskeletal: No Edema
Neuro: Nonfocal/grossly intact
Acute COPD exacerbation
-Wheezing on examination
Currently on 2 L, wean oxygen as tolerated
-Chest x-ray unremarkable
- Continue with DuoNeb standing and as needed
- Continue with Decadron, 4 every 12
- Continue azithromycin 3 times a week
- Sees Dr. Garza from pulmonary outpatient, consult pulmonary. Used to be on Spiriva however not on that anymore. Does report recently put on budesonide which she does not like
Echo with preserved EF, no regional wall motion abnormality
Reporting still with significant dyspnea on exertion.
Essential hypertension
- Continue amlodipine
Former smoker
Full code
DVT prophylaxis heparin
Anticipated Discharge: > 48 hours
Subjective/Interval History
-
Date of Service: May 23, 2025
Still has dyspnea
Objective Data
-
Labs:
Laboratory Results
05/23/25
05:12
WBC 7.0
Hgb 11.4 L
Hct 35.1 L
Plt Count 215
Sodium 139
Potassium 5.0
Chloride 108 H
Carbon Dioxide 24
BUN 25 H
Creatinine 0.9
Glucose 149 H
Calcium 8.9
Vital Signs:
Vital Signs
Temp Pulse Resp BP Pulse Ox
98.3 F 78 20 131/68 96
05/23/25 07:40 05/23/25 11:02 05/23/25 11:02 05/23/25 07:40 05/23/25 11:02
I&O
05/22/25 05/23/25 05/24/25
06:59 06:59 06:59
Intake Total 840 / 840 660 / 660
Balance 840 / 840 660 / 660
[2025-05-23 14:56] VITALS: BP 122/62
[2025-05-23 15:38] VITALS: BP 136/86; PULSE 96; O2SAT 98
[2025-05-23 15:41] VITALS: BP 136/86; PULSE 91; O2SAT 98
--- NOTE | 2025-05-23 15:46 | PTOTSP ---
pt currently requires supervision to no assistance to complete simple ADLs, functional transfers, ambulation. educated and reviewed energy conservation handout. pt verbalized understanding. no acute OT needs identified at this time, will sign off.
[2025-05-23] MEDS: NORVASC 5 MG PO (21:03)
[2025-05-23] MEDS: REFRESH EYE DROPS (PF) 1 DROPS OPHTH (21:03)
[2025-05-23 23:00] VITALS: BP 142/67
[2025-05-24 07:25] VITALS: BP 130/70
[2025-05-24] MEDS: DUONEB 3 ML INH ×2 (07:33→11:18)
[2025-05-24] MEDS: PULMICORT 0.5 MG INH (07:33)
[2025-05-24] MEDS: HEPARIN 5000 UNITS SC (07:59)
[2025-05-24 09:11] LABS: Hematocrit 39.0 % (37.0-47.0); Hemoglobin 12.4 g/dL (12.0-16.0); Mean Corp Hgb Conc. 31.8 g/dL (33.0-37.0); Mean Corpuscular Volume 87.8 fL (81.0-99.0); Nucleated Red Blood Cells % 0 %; Platelet Count 258 10^3/uL (130-400); Red Cell Dist. Width 13.1 % (11.5-14.5)
[2025-05-24 09:43] LABS: Blood Urea Nitrogen 23 mg/dl (7-17); Calcium 9.7 mg/dl (8.4-10.2); Carbon Dioxide 27 mmol/L (22-30); Chloride 107 mmol/L (98-107); Estimated Creatinine Clearance 54 ml/min; Glucose 105 mg/dl (70-99); Potassium 4.4 mmol/L (3.5-5.1); Sodium 139 mmol/L (135-145); eGFR > 60.00
[2025-05-24] MEDS: FLUSH (NSS) 2 FLUSH IV (09:47)
[2025-05-24] MEDS: DECADRON 4 MG IV (09:47)
--- NOTE | 2025-05-24 11:08 | W.PN.HOSP.TC ---
Today's Communication/Plan
-
Monitor vital signs see plan
Transition to prednisone with taper
Continue with DuoNeb, Pulmicort
Discharge today
Weaned off oxygen
Time of discharge 38 minutes
Assessment / Plan
Assessment / Plan
General: Well Developed, Well Nourished and No Apparent Distress
HEENT: NormoCephalic, Moist mucous membranes and Atraumatic
Respiratory: Wheezes
Cardiac: S1/S2 and Regular Rhythm; No Murmur or Rub
GI: Soft, Non Tender, Non Distended and Normal Bowel Sounds
Musculoskeletal: No Edema
Neuro: Nonfocal/grossly intact
Acute COPD exacerbation
-Wheezing on examination
Currently on 2 L, wean oxygen as tolerated
-Chest x-ray unremarkable
- Continue with DuoNeb standing and as needed
- Continue with Decadron, 4 every 12, transition to prednisone
- Continue azithromycin 3 times a week
- Sees Dr. Garza from pulmonary outpatient, consult pulmonary. Used to be on Spiriva however not on that anymore
Discussed with Dr. Langford 05/23. Will discharge patient on p.o. prednisone with long taper over 2 weeks. Patient will follow-up next week with Dr. Pichardo. Now weaned off oxygen. Advised patient to follow-up also with cardiology for possible
stress test
Echo with preserved EF, no regional wall motion abnormality
Reporting still with significant dyspnea on exertion.
Essential hypertension
- Continue amlodipine
Former smoker
Full code
DVT prophylaxis heparin
Anticipated Discharge: Today
Subjective/Interval History
-
Date of Service: May 24, 2025
Feeling better
Objective Data
-
Labs:
Laboratory Results
05/24/25
08:27
WBC 8.1
Hgb 12.4
Hct 39.0
Plt Count 258
Sodium 139
Potassium 4.4
Chloride 107
Carbon Dioxide 27
BUN 23 H
Creatinine 0.9
Glucose 105 H
Calcium 9.7
Vital Signs:
Vital Signs
Temp Pulse Resp BP Pulse Ox
97.8 F 86 18 130/70 96
05/24/25 07:25 05/24/25 07:36 05/24/25 07:36 05/24/25 07:25 05/24/25 07:36
I&O
05/23/25 05/24/25 05/25/25
06:59 06:59 06:59
Intake Total 660 / 660 310 / 310
Balance 660 / 660 310 / 310
--- NOTE | 2025-05-24 11:17 | W.DCSUMMARY ---
Discharge Summary
Discharge Data
Date of Admission: 05/21/25
Date of Discharge: 05/24/25
-
Pending Results: No
Hospital Course
80-year-old female with past medical history of COPD, essential hypertension, former smoker came to the hospital with acute COPD exacerbation. Initially patient required oxygenation which was later able to be weaned off. Initially she also
required IV steroids which was later transitioned to p.o. prednisone with long taper per pulmonary recommendation on discharge. Pulmonary also followed patient throughout hospitalization and wanted to follow-up with them next week outpatient. Once
patient symptoms continue to improve and she was feeling better, she was then discharged home with instructions to follow-up with all her physicians outpatient.
Discharge Plan
-
Patient Disposition: Home (Routine Discharge)
Discharge Diagnosis/Procedures: COPD exacerbation
Diet: As tolerated
Activity: As tolerated
Driving Restrictions: As prior to admission
Bathing Restrictions: None
Referrals:
Milton Schroeder MD [Active, Pulmonary Medicine] - in less than 1 week
Bridgett Church MD [Active, Cardiology]
UNKNOWN - PT NOT,INTERVIEWE [Family Provider, Family Practice] - in less than 1 week
Prescriptions:
New
prednisone 10 mg Tablet
See Rx Instructions .ROUTE .COMPLEX Qty: 45 0RF
Rx Instructions:
Take By Mouth:
50 mg daily x3 days, 40 mg daily x3 days,
30 mg daily x3 days, 20 mg daily x3 days,
10 mg daily x3 days
famotidine [Pepcid] 20 mg tablet
20 mg PO DAILY Qty: 20 0RF
budesonide 0.5 mg/2 mL Suspension For Nebulization
0.5 mg inhalation R BID Qty: 60 0RF
Continued
amlodipine 5 mg tablet
5 mg PO DAILY
albuterol sulfate 90 mcg/actuation HFA aerosol inhaler
2 inh INHALATION R Q6HPRN PRN (Reason: sob)
azithromycin 250 mg Tablet
250 mg PO MOWEFR
ipratropium-albuterol 0.5 mg-3 mg(2.5 mg base)/3 mL Solution For Nebulization
3 ml INHALATION R Q4HPRN PRN (Reason: sob) Qty: 180 0RF
Discontinued
budesonide 0.5 mg/2 mL Suspension For Nebulization
0.5 mg INHALATION R Q6HPRN PRN (Reason: sob)
Discharge Orders:
Discharge Patient (As Directed); Ordered 05/24/25
Ordered By: Morris Moreira
Discharge Date and Time
Discharge Date/Time: 05/24/25 13:22
Print Language: FRISIAN
== END 2025-05-24 13:22 | disposition home or self-care (01) ==
LOC: 3 WEST ACU 14:00
PROVIDERS: Emergency Medicine; ADMITTING PHYSICIAN Hospitalist; ATTENDING PHYSICIAN Internal Medicine; CONSULT PHYSICIAN Internal Medicine Critical Care Medicine; EMERGENCY PHYSICIAN Emergency Medicine
DX: J44.1 Chronic obstructive pulmonary disease with (acute) exacerbation (principal); R06.02 Shortness of breath; R06.2 Wheezing; F17.200 Nicotine dependence, unspecified, uncomplicated; I10 Essential (primary) hypertension; R91.1 Solitary pulmonary nodule; J98.11 Atelectasis; F41.9 Anxiety disorder, unspecified; I49.1 Atrial premature depolarization; I07.1 Rheumatic tricuspid insufficiency; I25.10 Atherosclerotic heart disease of native coronary artery without angina pectoris; Z63.4 Disappearance and death of family member; Z85.820 Personal history of malignant melanoma of skin; Z91.048 Other nonmedicinal substance allergy status; Z79.2 Long term (current) use of antibiotics; Z79.51 Long term (current) use of inhaled steroids; Z90.49 Acquired absence of other specified parts of digestive tract; Z82.49 Family history of ischemic heart disease and other diseases of the circulatory system
CPT/HCPCS: 71046; 80048; 80053; 85025; 93005; 93306; 94640; 96374; 97162; 97167; 99285; G0378